=== PATIENT | male | born 1995 | race Caucasian/White ===

== ENCOUNTER → 2022-12-24 | Day surgery (SDC) | payer OTHER ==
[2022-12-23 09:02] LABS: Basophils # (auto) 0.1 10 ^3/uL (0-0.2); Basophils % (auto) 0.9 % (0.0-2.0); Eosinophils # (auto) 0.5 10 ^3/uL (0-0.8); Eosinophils % (auto) 9.6 % (0.0-7.0); Hematocrit 44.9 % (41.0-53.0); Hemoglobin 15.7 g/dL (13.5-17.5); Lymphocytes # (auto) 1.6 10 ^3/uL (0.4-5.4); Lymphocytes % (auto) 30.7 % (10.0-50.0); Mean Corpuscular Hemoglobin 29.9 pg (28.0-32.0); Mean Corpuscular Volume 85.3 fL (80.0-100.0); Monocytes # (auto) 0.6 10 ^3/uL (0-1.3); Monocytes % (auto) 10.6 % (0.0-12.0); Neutrophils # (auto) 2.6 10 ^3/uL (1.6-8.6); Neutrophils % (auto) 48.2 % (37.0-80.0); Nucleated Red Blood Cells % 0.2 %; Red Blood Cells 5.26 10^6/uL (4.5-5.90); Red Cell Distribution Width 12.9 % (11.8-14.3); White Blood Cell 5.3 10^3/uL (4.4-10.8)
[2022-12-23 09:22] LABS: INR 1.07 (0.9-1.15); Partial Thromboplastin Time 28.3 sec (24.6-33.4)
[2022-12-23 10:30] LABS: Albumin 4.2 g/dL (3.4-5.0); Calcium 8.9 mg/dL (8.5-10.1); Potassium 4.1 mmol/L (3.5-5.1)
[2022-12-23 10:35] LABS: BUN/Creatinine Ratio 10.6 (10.0-20.0); Bilirubin, Total 2.5 mg/dL (0.2-1.0); Total Protein 7.3 g/dL (6.4-8.2)
[~2022-12-24] VITALS: Ht 167.6 cm; Wt 65.3 kg
[~2022-12-24] MED LIST: SODIUM CHLORIDE LOCK 10 ML ONE; diphenhdrAMINE HCL 50 MG/1 ML VL ONE; fentaNYL CITRATE 100 MCG/2 ML VL ONE
[2022-12-24] MEDS: MIDAZOLAM HCL 5 MG/ML-1ML VIAL ONE ×3 (14:40→14:48)
[2022-12-24] MEDS: fentaNYL CITRATE 100 MCG/2 ML VL ONE ×2 (14:40→14:45)
[2022-12-24 15:41] VITALS: BP 110/63
== END | disposition home or self-care (01) ==
LOC: GI 12:58
PROVIDERS: ATTEND Internal Medicine Gastroenterology
DX: R13.10 Dysphagia, unspecified (principal); K21.00 Gastro-esophageal reflux disease with esophagitis, without bleeding; K44.9 Diaphragmatic hernia without obstruction or gangrene; K22.4 Dyskinesia of esophagus
CPT/HCPCS: 36415; 43239; 80053; 85025; 85610; 85730; J1200; J2250; J3010; J7030

== ENCOUNTER → 2023-02-10 | Outpatient (CLI) | payer OTHER ==
[2023-02-10 12:00] LABS: Basophils # (auto) 0.1 10 ^3/uL (0-0.2); Basophils % (auto) 1.1 % (0.0-2.0); Eosinophils # (auto) 0.2 10 ^3/uL (0-0.8); Hemoglobin 15.9 g/dL (13.5-17.5); Lymphocytes % (auto) 34.3 % (10.0-50.0); Mean Corpuscular Hemoglobin 29.5 pg (28.0-32.0); Mean Corpuscular Hgb Conc. 34.5 g/dL (32.0-36.0); Mean Corpuscular Volume 85.6 fL (80.0-100.0); Monocytes # (auto) 0.5 10 ^3/uL (0-1.3); Monocytes % (auto) 9.1 % (0.0-12.0); Neutrophils % (auto) 51.5 % (37.0-80.0); Nucleated Red Blood Cells % 0.2 %; Red Blood Cells 5.38 10^6/uL (4.5-5.90); Red Cell Distribution Width 12.9 % (11.8-14.3); White Blood Cell 5.8 10^3/uL (4.4-10.8)
[2023-02-10 12:29] LABS: Albumin 4.4 g/dL (3.4-5.0); BUN/Creatinine Ratio 10.2 (10.0-20.0); Calcium 9.2 mg/dL (8.5-10.1); Total Protein 7.9 g/dL (6.4-8.2)
== END | disposition home or self-care (01) ==
LOC: LAB 11:14
PROVIDERS: ATTEND Internal Medicine Gastroenterology
DX: R13.19 Other dysphagia (principal); K21.00 Gastro-esophageal reflux disease with esophagitis, without bleeding; R94.5 Abnormal results of liver function studies
CPT/HCPCS: 36415; 80053; 82728; 85025; 85652; 86038; 86803; 87340